=== PATIENT | male | born 1970 | race Two or more races ===

== ENCOUNTER 2017-11-19 17:05 | Emergency (ER) | payer MEDICAID ==
[~2017-11-19] VITALS: Ht 175.3 cm; Wt 72.6 kg
--- NOTE | 2017-11-19 17:38 | NUR ---
Patient discharged to home in stable conditon. Written and verbal after care instructions given. Patient verbalizes understanding of instructions.pt walks in steady gait
== END 2017-11-19 17:43 | disposition home or self-care (01) ==
LOC: ER 17:09
DX: R07.89 Other chest pain (principal); F41.9 Anxiety disorder, unspecified; F17.210 Nicotine dependence, cigarettes, uncomplicated
CPT/HCPCS: 71045; 99284; A4663